=== PATIENT | female | born 1940 | race Caucasian/White ===

== ENCOUNTER 2023-04-02 01:51 | Emergency (ER) | payer BC, SELFPAY ==
[2023-04-02 01:51] VITALS: BMI 24.1
[2023-04-02 01:54] VITALS: BP 150/85
--- NOTE | 2023-04-02 02:44 | ED.GENMED ---
History of Present Illness
<Atul Patrick DO - Last Filed: 04/02/23 03:49>
General
Chief Complaint: Heart Rate Problem
Time Seen by Provider: 04/02/23 02:44
<ANNITA Evans - Last Filed: 04/02/23 04:42>
General
Source: patient
Exam Limitations: none
Travel History
Have you had any contact with someone who has COVID-19?: No
Do you have any symptoms of coronavirus? Fever > 100 degrees, chills, cough, shortness of breath, sore throat, loss of taste or smell, muscle aches, or headache?: No
History of Present Illness
History of Present Illness:
This is a 83 YOF with PMHx of HTN presenting with episodes of palpitations over the past 2 days. Pt mentioned that she has had palpitations in the past, but that they were infrequent and short in length. Pt mentioned 4 episodes this evening starting
around 1800 that lasted 5-10mins at a time and the sensation radiated to L neck. Pt mentioned chest discomfort under L breast but thinks this is MSK related as she is very active. Pt denied any chest discomfort at time of exam and denied pain to
palpation of chest and ribcage. Pt mentioned recent PCP visit and medication change x 2 days, increasing valsartan 40mg daily to 80mg daily for elevated SBP in 150s. Pt only took 40mg valsartan on 04/01/23. Pt had recent viral illness with mild
cough, rhinorrhea that resolved 2 days ago, lasting approx 2 weeks. Pt denied any SOB, GOTTLIEB, dizziness, syncope or near syncope, N/V/D/C, dysuria, hematuria, MSK weakness, sensory deficits. PE significant for no carotid bruit, no irregular heart beat.
<ANNITA Evans - Last Filed: 04/02/23 04:42>
Review of Systems
Allergies reviewed?: Yes
All Other Systems: ROS reviewed and negative except as documented in HPI and ROS
Constitutional: Reports no symptoms
EENT: Reports no symptoms
Respiratory: Reports no symptoms
Cardiac: Reports chest pain and palpitations
ABD/GI: Reports no symptoms
: Reports no symptoms
Musculoskeletal: Reports no symptoms
Skin: Reports no symptoms
Neurological: Reports no symptoms
Hematologic/Lymphatic: Reports no symptoms
Psychiatric: Reports no symptoms
<ST NathanMI - Last Filed: 04/02/23 04:42>
General Physical Exam
General Presentation: well appearing
General age: appears stated age
General Skin: warm and dry
General Habitus: normal
General Mental: alert
General Hydration: appears well hydrated
ENT Exam
ENT Exam: EOMI and neck supple
Eye Exam
Eye Exam: PERRL and EOMI
Pulmonary Exam
Pulmonary Exam: lungs clear, no respiratory distress, no rales, chest non tender, no crackles, no rhonchi, no stridor, no wheezing and no cough
Gastrointestinal Exam
Gastrointestinal Exam: normal bowel sounds, non tender, soft, no pulsatile mass, non distended and no masses
Neurological Exam
Neurological Exam: alert, oriented x3, no motor deficits, no sensory deficits, speech normal and normal gait
Skin Exam
Skin Exam: normal color and warm/dry
Psychiatric Exam
Psychiatric Exam: normal mood/affect
Course
<Atul Patrick DO - Last Filed: 04/02/23 03:49>
Orders/Labs/Results
Orders:
Orders
04/02/23 02:02
EKG [Electrocardiogram (*1)] Urgent
Reason for Study: Palpitations
04/02/23 02:03
EKG- Treatment ONCE
04/02/23 03:26
IV Insert/Care/Rem.- Treatment PRN
04/02/23 03:30
Complete Blood Count/With Diff Urgent
Comprehensive Metabolic Panel Urgent
Magnesium Urgent
TSH Urgent
Troponin I Urgent
Abnormal Lab Results
04/02/23
03:30
WBC 4.5 L 10^3/uL
(4.8-10.8)
RBC 3.44 L 10^6/uL
(4.20-5.40)
Hgb 11.6 L g/dL
(12.0-16.0)
Hct 33.4 L %
(37.0-47.0)
MCH 33.7 H pg
(27.0-31.0)
Sodium 133 L mmol/L
(135-145)
Glucose 114 H mg/dl
(70-99)
04/02/23 03:30
04/02/23 03:30
Vital Signs
Initial and Last Documented VS:
Initial Vital Signs
Temp Pulse Resp BP Pulse Ox
98.2 F 89 16 150/85 100
04/02/23 01:54 04/02/23 01:54 04/02/23 01:54 04/02/23 01:54 04/02/23 01:54
Last Documented Vital Signs
Temp Pulse Resp BP Pulse Ox
98.2 F 72 14 143/72 99
04/02/23 01:54 04/02/23 03:23 04/02/23 03:23 04/02/23 03:23 04/02/23 03:23
Kyalt;ANNITA Evans - Last Filed: 04/02/23 04:42>
Orders/Labs/Results
Orders:
Orders
04/02/23 02:02
EKG [Electrocardiogram (*1)] Urgent
Reason for Study: Palpitations
04/02/23 02:03
EKG- Treatment ONCE
04/02/23 03:26
IV Insert/Care/Rem.- Treatment PRN
04/02/23 03:30
Complete Blood Count/With Diff Urgent
Comprehensive Metabolic Panel Urgent
Magnesium Urgent
TSH Urgent
Troponin I Urgent
Abnormal Lab Results
04/02/23
03:30
WBC 4.5 L 10^3/uL
(4.8-10.8)
RBC 3.44 L 10^6/uL
(4.20-5.40)
Hgb 11.6 L g/dL
(12.0-16.0)
Hct 33.4 L %
(37.0-47.0)
MCH 33.7 H pg
(27.0-31.0)
Sodium 133 L mmol/L
(135-145)
Glucose 114 H mg/dl
(70-99)
04/02/23 03:30
04/02/23 03:30
Vital Signs
Initial and Last Documented VS:
Initial Vital Signs
Temp Pulse Resp BP Pulse Ox
98.2 F 89 16 150/85 100
04/02/23 01:54 04/02/23 01:54 04/02/23 01:54 04/02/23 01:54 04/02/23 01:54
Last Documented Vital Signs
Temp Pulse Resp BP Pulse Ox
98.2 F 72 14 143/72 99
04/02/23 01:54 04/02/23 03:23 04/02/23 03:23 04/02/23 03:23 04/02/23 03:23
<Atul Patrick, DO - Last Filed: 04/02/23 03:49>
MDM/Problems Addressed
Differential Diagnosis Includes:
Dysrhythmia, ACS
MDM/Problems Addressed:
83-year-old female with palpitations, left chest soreness.
Chronic conditions affecting care: HTN
Acute Exacerbation and/or Progression of Chronic Illness: HTN
<Atul Patrick DO - Last Filed: 04/02/23 03:49>
*Pulse Oximetry
Patient hypoxic: no
*EKG
Interpreted by ED Provider?: Yes
EKG Intrepretation Date: 04/02/23
EKG Intrepretation Time: 02:09
Interpretation: abnormal
Comparison EKG: no changes
Heart Rate: 78
Rate: normal
Rhythm: sinus
Lillie: normal axis
Interval: normal interval
QRS Pattern: left vent hypertrophy
Ischemia: no ischemia
*Guardian Ad Litem Interpretation
Rate: normal
Interpretation: normal
Heart Rate: 80
Rhythm: sinus
*Critical Care Note
Total Time (30-74mins, 75-104mins- exclusive of procedures): Not Applicable
Data Reviewed
Further Testing Considered But Not Given:
repeat troponin and ct chest not indicated
<Atul Patrick, DO - Last Filed: 04/02/23 03:49>
Patient Management
Social determinants of health affecting care: Living situation and Strong social support
Escalation/DeEscalation of care consider admission/obs:
admit not indicated
ED Attending Note
<Atul Patrick DO - Last Filed: 04/02/23 03:49>
ED Attending Note
Patient seen and examined by attending physician: Yes
I performed the substantive portion of visit, reviewed & personally made and approve the management plan that is documented in note by myself or PRADIP.: Yes
I performed a history and physical exam of patient and discussed management with resident, I reviewed resident's note and agree with documented findings and plan of care.: Yes
ED Attending Note:
I have reviewed and agree with history and treatment plan by Demetria Cruz. My exam revealed
Physical Exam
General: no apparent distress, not acutely ill
Neck: supple. no meningeal signs. normal posterior pharynx
Heart: s1/s2 regular rate and rhythm, no murmur. equal radial
pulses.
HEENT: Pupils equal round reactive to light, EOMI
Lungs: no acute respiratory distress. clear bilaterally
Abdomen: normal bowel sounds. not tender. no CVAT
Neuro: alert and oriented. no focal neurological deficits cranial nerves II through XII intact
Skin: no rash
Psychiatric: well kept. interactive and cooperative
Extremities: no edema. no calf tenderness. negative homans. good distal pulses
This is 83-year-old female with mild left chest discomfort, that she states is chronic and from playing pickle ball, palpitations that were intermittent today, but she has had in the past. Normal EKG. If troponins are negative, patient stable for
discharge
<ANNITA Evans - Last Filed: 04/02/23 04:42>
-
Portions of this chart may have been created with voice recognition software.� Occasional wrong word or��sound alike� substitutions may have occurred due to the inherent limitations of voice recognition software.
Discharge Plan
Departure
Patient Disposition: Home (Routine Discharge)
Date of Disposition: 04/02/23
Time of Disposition: 04:28
Patient with high blood pressure during this ER visit?: Yes
Condition: Good
Discharge Problem:
Palpitations
Instructions: Palpitations (DC), BLOOD PRESSURE
Referrals:
Hesham Degroot MD [Active] - Call in 1-3 days for appt
Nae Tinsley MD [Family Provider] -
Interventions
Interventions:
*Risk Screen - Suicide Last Done: 04/02/23 01:54
*General Assessment Last Done: 04/02/23 01:54
*Neglect/Abuse Screening Last Done: 04/02/23 01:54
ED- Fall Risk Assessment Last Done: 04/02/23 01:54
*ED COVID-19 Vaccine History Last Done: 04/02/23 01:54
[2023-04-02 03:22] VITALS: BP 143/72
[2023-04-02 03:23] VITALS: BP 143/72
[2023-04-02 03:35] LABS: % Basophils 0.2 % (0-2); % Eosinophils 0.4 % (0-6); % Lymphocytes 34.3 % (20.5-51.1); % Monocytes 8.7 % (1.7-9.3); % Neutrophils 56.4 % (42.2-75.2); Absolute Lymphocytes 1.5 10^3/uL (1.2-3.4); Absolute Monocytes 0.4 10^3/uL (0.1-0.6); Absolute Neutrophils 2.5 10^3/uL (1.4-6.5); Hematocrit 33.4 % (37.0-47.0); Hemoglobin 11.6 g/dL (12.0-16.0); Mean Corp Hgb Conc. 34.7 g/dL (33.0-37.0); Mean Corpuscular Hgb 33.7 pg (27.0-31.0); Mean Corpuscular Volume 97.1 fL (81.0-99.0); Nucleated Red Blood Cells % 0 %; Platelet Count 165 10^3/uL (130-400); Red Blood Cell Count 3.44 10^6/uL (4.20-5.40); Red Cell Dist. Width 11.6 % (11.5-14.5); White Blood Cell Count 4.5 10^3/uL (4.8-10.8)
[2023-04-02 03:56] LABS: ALT (SGPT) 22 U/L (0-35); AST (SGOT) 27 U/L (14-36); Albumin 3.8 g/dl (3.5-5.0); Alkaline Phosphatase 74 U/L (38-126); Blood Urea Nitrogen 13 mg/dl (7-17); Calcium 8.8 mg/dl (8.4-10.2); Carbon Dioxide 28 mmol/L (22-30); Chloride 102 mmol/L (98-107); Estimated Creatinine Clearance 59 ml/min; Glucose 114 mg/dl (70-99); Magnesium 2.1 mg/dl (1.6-2.3); Sodium 133 mmol/L (135-145); Total Bilirubin 0.6 mg/dl (0.2-1.3); Total Protein 6.5 g/dl (6.3-8.2); eGFR > 60.00
[2023-04-02 04:00] VITALS: BP 140/73
[2023-04-02 04:00] LABS: Troponin I < 0.012 ng/ml
[2023-04-02 04:26] LABS: TSH 2.27 uIU/ml (0.47-4.68)
== END 2023-04-02 04:44 | disposition home or self-care (01) ==
LOC: EMR 01:51
PROVIDERS: EMERGENCY PHYSICIAN Emergency Medicine; FAMILY PHYSICIAN Family Medicine
DX: R00.2 Palpitations (principal); R07.89 Other chest pain; I10 Essential (primary) hypertension; Z88.5 Allergy status to narcotic agent
CPT/HCPCS: 99283; 80053; 83735; 84443; 84484; 85025; 93005